=== PATIENT | female | born 1990 | race African-American/Black ===

== ENCOUNTER 2017-11-25 15:07 | Emergency (ER) | payer OTHER ==
[2017-11-25 15:15] VITALS: BMI 29.2
--- NOTE | 2017-11-25 15:26 | PDOC ---
History of Present Illness - General Chief Complaint: Injury Stated Complaint: INJURY TO HEAD (WORK RELATED) Time Seen by Provider: 11/25/17 15:12 History Source: Patient Exam Limitations: No Limitations - History of Present Illness Initial Comments: 11/25/17 15:23 The patient is a 27F at 24 weeks who presents to the ER after having a head injury. The patient states she was at work ([employer]) and says that the lid of the ice machine fell and hit her on the top of the head and on the side. She is complaining of suprapubic abdominal pain but denies vaginal bleeding or discharge or dysuria. Past History - Past Medical History Allergies/Adverse Reactions: Allergies Allergy/AdvReac Type Severity Reaction Status Date / Time No Known Allergies Allergy Verified 11/25/17 15:11 Home Medications: Ambulatory Orders NK [No Known Home Medication] 11/25/17 COPD: No Other medical history: denies - Suicide/Smoking/Psychosocial Hx Smoking History: Never smoked Have you smoked in the past 12 months: No Information on smoking cessation initiated: No Hx Alcohol Use: No Drug/Substance Use Hx: No Substance Use Type: None Review of Systems - Review of Systems Able to Perform ROS?: Yes Comments:: 11/25/17 15:31 GENERAL/CONSTITUTIONAL: No fever or chills. No weakness. HEAD, EYES, EARS, NOSE AND THROAT: No change in vision. No ear pain or discharge. No sore throat. CARDIOVASCULAR: No chest pain, palpitations, or lightheadedness. RESPIRATORY: No cough, wheezing, shortness of breath, or hemoptysis. GASTROINTESTINAL: Positive for suprapubic abdominal pain. No nausea, vomiting, diarrhea, or constipation. GENITOURINARY: No dysuria, frequency, hematuria, or change in urination. MUSCULOSKELETAL: No joint or muscle swelling or pain. No neck or back pain. SKIN: No rash or lesions. NEUROLOGIC: Positive for headache. No numbness, tingling, weakness, loss of consciousness, or change in strength/sensation. ENDOCRINE: No increased thirst. No abnormal weight change. HEMATOLOGIC/LYMPHATIC: No anemia, easy bleeding, or history of blood clots. ALLERGIC/IMMUNOLOGIC: No hives or skin allergy. Is the patient limited Chinese proficient: No *Physical Exam - Vital Signs Last Vital Signs Temp Pulse Resp BP Pulse Ox 99 F 82 20 111/72 100 11/25/17 15:11 11/25/17 15:11 11/25/17 15:11 11/25/17 15:11 11/25/17 15:11 - Physical Exam Comments: 11/25/17 15:32 GENERAL: Well developed, well nourished. Awake and alert. No acute distress. HEENT: Normocephalic, atraumatic. Hearing grossly normal. Moist mucous membranes. PERRLA, EOMI. No conjunctival pallor. Sclera are non-icteric. NECK: Supple. Full ROM. No JVD. CARDIOVASCULAR: Regular rate and rhythm. No murmurs, rubs, or gallops. PULMONARY: No evidence of respiratory distress. Lungs clear to auscultation bilaterally. No wheezing, rales or rhonchi. ABDOMINAL: Soft. Gravid abdomen. Non-tender. Non-distended. No rebound or guarding. GENITOURINARY: R CVA tenderness. MUSCULOSKELETAL: Normal range of motion at all joints. No bony deformities or tenderness. EXTREMITIES: No cyanosis. No clubbing. No edema. No calf tenderness. SKIN: Warm and dry. Normal capillary refill. No rashes. No jaundice. NEUROLOGICAL: Alert, awake, appropriate. Cranial nerves 2-12 intact. Normal speech. Gait is normal without ataxia. PSYCHIATRIC: Cooperative. Good eye contact. Appropriate mood and affect. Medical Decision Making - Medical Decision Making 11/25/17 15:35 The patient is a 27F at 24 weeks who presents after hitting her head on the lid of an ice machine and is complaining of abdominal pain. She is stable in the ED. Will t/f to L&D for further evaluation.
[2017-11-25] MEDS ORDERED: ACETAMINOPHEN 325 MG TABLET (FP) PO ONE (15:46)
--- NOTE | 2017-11-25 15:59 | PDOC ---
Attending Attestation - Resident Resident Name: Wild Bhandari - ED Attending Attestation I have performed the following: I have examined & evaluated the patient, The case was reviewed & discussed with the resident, I agree w/resident's findings & plan, Exceptions are as noted - HPI HPI: 11/25/17 15:54 27y/o LMP about 24 weeks presents with head and abd/flank pain after lid of ice bin fell onto her at work. Plastic lid, not very heavy, fell shut and struck her on the head then flank/abd. no LOC, no vision/speech/weakness change. no cramping or bleeding. no hematuria. - Physicial Exam PE: 11/25/17 16:06 VSS neuro exam normal abd exam without bruising or focal tenderness/guarding - Medical Decision Making 11/25/17 16:05 27y/o F at 24 weeks gestation p/w minor head and abd injury. exam reassuring. tylenol for pain no indication for neuro monitoring or imaging given low risk head injury and no red flags on history/physical exam will refer directly to L+D for monitoring given the abd injury and pain check UA upstairs
[2017-11-25] MEDS ORDERED: ACETAMINOPHEN 325 MG TABLET (FP) ONE (16:35)
[2017-11-25 16:58] VITALS: BP 110/64; PULSE 73; TEMP 98.7
== END 2017-11-25 17:21 | disposition home or self-care (01) ==
LOC: JER 15:07
DX: O99.89 Other specified diseases and conditions complicating pregnancy, childbirth and the puerperium (principal); S09.8XXA Other specified injuries of head, initial encounter; S39.81XA Other specified injuries of abdomen, initial encounter; W22.8XXA Striking against or struck by other objects, initial encounter; Y93.89 Activity, other specified; Y92.511 Restaurant or cafe as the place of occurrence of the external cause; Y99.0 Civilian activity done for income or pay; Z3A.24 24 weeks gestation of pregnancy
CPT/HCPCS: 99283-25